=== PATIENT | male | born 1965 | race Caucasian/White ===

== ENCOUNTER 2022-01-31 06:36 | Inpatient (IN) | payer BC ==
[2022-01-31 08:05] LABS: Absolute Lymphocytes (CBC) 0.8 K/uL (0.7-4.9); Lymphocytes % 12.3 % (15.3-44.8); MPV 8.4 fL (7.6-11.3); RBC Red Blood Cell Count 7.21 M/uL (4.33-5.43)
[2022-01-31 08:12] LABS: Protime INR 1.37
[2022-01-31 08:21] LABS: Albumin 2.6 g/dL (3.4-5.0); Bilirubin Total 1.3 mg/dL (0.2-1.0); Protein, Total 6.8 g/dL (6.4-8.2)
--- NOTE | 2022-01-31 08:51 | RAD REPORT ---
EXAM DESCRIPTION: US - Scrotum Testicles - 01/31/2022 7:38 am CLINICAL HISTORY: scrotal pain, swelling COMPARISON: No comparisons FINDINGS: Significant edema is seen involving the scrotal wall. The right testicle 3.7 x 2.5 x 2.6 cm. No intratesticular masses or evidence of testicular torsion. The left testicle 4.1 x 3.0 x 2.6 cm. No intratesticular masses or evidence of testicular torsion. Both epididymides are normal in size and appearance. Mild fluid is seen in both scrotal sacs. IMPRESSION: Significant edema/ swelling of the scrotal wall. No testicular torsion or worrisome testicular masses.
--- NOTE | 2022-01-31 08:52 | RAD REPORT ---
EXAM DESCRIPTION: RAD - Chest Single View - 01/31/2022 8:15 am CLINICAL HISTORY: DYSPNEA Chest pain. COMPARISON: No comparisons FINDINGS: Portable technique limits examination quality. Mild to moderate pulmonary edema is noted. Moderate right pleural effusion. The heart is significantl y moderately enlarged. No displaced fractures. IMPRESSION: Moderate CHF with right pleural effusion.
[2022-01-31] MEDS ORDERED: FUROSEMIDE 100 MG/10 ML VIAL IV ONE (09:01)
--- NOTE | 2022-01-31 09:11 | ER ---
Nurse's Notes [facility] Name: Edilberto Lagos Age: 56 yrs Sex: Male : 1965 Arrival Date: 01/31/2022 Time: 06:41 Bed 18 Private MD: Diagnosis: Dyspnea, unspecified;Anasarca;Unspecified combined systolic (congestive) and diastolic (congestive) heart failure;Pleural effusion, not elsewhere classified Presentation: 01/31 06:41 Chief complaint: EMS states: they were toned out for report of pt with scrotal pain and bb edema since last night after moving things around in his apartment. Coronavirus screen: At this time, the client does not indicate any symptoms associated with coronavirus-19. Ebola Screen: No symptoms or risks identified at this time. Initial Sepsis Screen: Does the patient meet any 2 criteria? No. Patient's initial sepsis screen is negative. Does the patient have a suspected source of infection? No. Patient's initial sepsis screen is negative. Risk Assessment: Do you want to hurt yourself or someone else? Patient reports no desire to harm self or others. Onset of symptoms was January 30, 2022. 06:41 Method Of Arrival: EMS: [facility] bb 06:41 Acuity: MARIUM 3 bb Historical: - Allergies: 06:43 No Known Allergies; bb - Home Meds: 06:43 None [Active]; bb - PMHx: 06:43 unknown; bb - PSHx: 06:43 back surgery; bb - Immunization history:: Pfizer x 3. - Social history:: Smoking status: Patient reports the use of cigarette tobacco products. - Family history:: not pertinent. - Hospitalizations: : No recent hospitalization is reported. Screenin:55 Abuse screen: Denies threats or abuse. Nutritional screening: No deficits noted. jh6 Tuberculosis screening: No symptoms or risk factors identified. Fall Risk IV access (20 points). Gait- Impaired (20 pts.). Assessment: 07:45 General: Appears uncomfortable, obese, Behavior is calm, cooperative. 6 07:45 Pain: Complains of pain in lumbar area, left low back and right low back Pain radiates jh6 to groin Pain currently is 7 out of 10 on a pain scale. Quality of pain is described as shooting, throbbing, Pain began 2-3 days ago. Is continuous, Aggravated by increased activity, weight bearing, Also complains of. Neuro: No deficits noted. Cardiovascular: No deficits noted. Respiratory: Reports shortness of breath at rest and unable to lay flat Airway is patent Trachea midline Respiratory effort is even, labored, Respiratory pattern is regular, symmetrical, Breath sounds are clear bilaterally. in left posterior upper lobe and right posterior upper lobe Breath sounds with crackles Breath sounds are diminished bilaterally. in left lower lobe, right lower lobe, left posterior lower lobe and right posterior lower lobe Onset: The symptoms/episode began/occurred gradually, the patient has mild shortness of breath. Derm: +4 edema to bilateral lower extremities with major swelling to testicles. swelling extending to lower abd. 09:00 Reassessment: Patient and/or family updated on plan of care and expected duration. Pain jh6 level reassessed. Patient is alert, oriented x 3, equal unlabored respirations, skin warm/dry/pink. able to speak in complete sentences but not without sob. pt on o2 and monitor. 10:00 Reassessment: No changes from previously documented assessment. Patient and/or family jh6 updated on plan of care and expected duration. Pain level reassessed. 11:00 Reassessment: Patient and/or family updated on plan of care and expected duration. Pain jh6 level reassessed. Patient is alert, oriented x 3, equal unlabored respirations, skin warm/dry/pink. pt has put out almost 3 liters and states other than butt pain, is starting to feel better. Patient states feeling better. 12:10 Reassessment: No changes from previously documented assessment. Patient and/or family jh6 updated on plan of care and expected duration. Pain level reassessed. Patient is alert, oriented x 3, equal unlabored respirations, skin warm/dry/pink. call light in reach. 13:30 Reassessment: Patient and/or family updated on plan of care and expected duration. Pain jh6 level reassessed. Patient is alert, oriented x 3, equal unlabored respirations, skin warm/dry/pink. Patient denies pain at this time. Patient states feeling better. 15:37 Reassessment: Patient and/or family updated on plan of care and expected duration. Pain jh6 level reassessed. Patient is alert, oriented x 3, equal unlabored respirations, skin warm/dry/pink. attempted to call report at this time Patient states feeling better. Patient states symptoms have improved. Vital Signs: 06:41 Resp 18 S; Temp 97.6(O); Weight 136.08 kg (R); Height 6 ft. 2 in. (187.96 cm) (R); Pain bb 5; 09:00 BP 150 / 94; Pulse 82; Resp 22; Pulse Ox 95% on 3 lpm NC; Pain 5/10; jh6 10:09 BP 167 / 95; Pulse 85; Resp 22; Pulse Ox 92% on 4 lpm NC; Pain 5/10; jh6 12:15 BP 134 / 70; Pulse 81; Resp 26; Pulse Ox 95% on 3 lpm NC; Pain 4/10; jh6 13:30 BP 138 / 86; Pulse 75; Resp 22; Pulse Ox 94% on 3 lpm NC; Pain 2/10; jh6 14:30 BP 125 / 79; Pulse 70; Resp 24; Pulse Ox 95% on 3 lpm NC; Pain 0/10; jh6 06:41 Body Mass Index 38.52 (136.08 kg, 187.96 cm) bb ED Course: 06:41 Patient arrived in ED. bb 06:43 Triage completed. bb 06:43 Arm band placed on pt awaiting on EMS stretcher for next available room. bb 07:03 Lexa Flores MD is Attending Physician. rn 07:30 Jennifer Nathan RN is Primary Nurse. jh6 07:40 Scrotum Testicles In Process Unspecified. EDMS 07:45 Bed in low position. Call light in reach. Side rails up X2. jh6 07:54 Inserted saline lock: 22 gauge in right antecubital area, using aseptic technique. jh6 Blood collected. 07:54 Initial lab(s) drawn, by me, sent to lab. COVID swab sent to lab. X-ray(s) taken. jh6 08:16 XRAY Chest (1 view) In Process Unspecified. EDMS 09:00 Garcia cath inserted, using sterile technique, 16 Fr., by me, balloon inflated, to jh6 gravity drainage. 09:10 Zaheer Cavazos MD is Hospitalizing Provider. rn Administered Medications: 09:04 Drug: Lasix (furosemide) 60 mg Route: IVP; Site: right antecubital; jh6 10:18 Follow up: Response: No adverse reaction jh6 11:38 Follow up: Response: No adverse reaction 6 09:15 Drug: Xopenex (levalbuterol) 1.25 mg Route: Inhalation; 6 10:18 Follow up: Response: No adverse reaction 6 11:54 Drug: Demerol (meperidine) 12.5 mg Route: IVP; Site: right antecubital; 6 12:27 Follow up: Response: Pain is decreased 6 Output: 09:45 Urine: 800ml (Garcia); Total: 800ml. jh6 11:30 Urine: 1600ml (Garcia); Total: 2400ml. 6 Outcome: 09:11 Decision to Hospitalize by Provider. rn 16:39 [address] [facility] [address] [facility] Signatures: Dispatcher [employer] Lis Whitfield RN RN bb Nieto, Roman, MD MD rn Hastedt, Jennifer, RN RN jh6
[2022-01-31 09:12] LABS: White Blood Cell Scan OK (OK)
--- NOTE | 2022-01-31 09:12 | EDPHYS ---
Physician Documentation [facility] Name: Edilberto Lagos Age: 56 yrs Sex: Male : 1965 Arrival Date: 01/31/2022 Time: 06:41 Bed 18 Private MD: ED Physician Lexa Floers HPI: 01/31 08:13 This 56 yrs old Male presents to ER via EMS with complaints of Swelling, scrotal pain. rn 08:14 Pt reports swelling all over, for months, worse over last week with increase in rn swelling of scrotum and sob. No fever. No cough. No known medical problems. Not a drinker. + smoker. . Onset: The symptoms/episode began/occurred 1 month(s) ago. Severity of symptoms: At their worst the symptoms were moderate in the emergency department the symptoms are unchanged. The patient has experienced similar episodes in the past. The patient has not recently seen a physician. Historical: - Allergies: 06:43 No Known Allergies; bb - Home Meds: 06:43 None [Active]; bb - PMHx: 06:43 unknown; bb - PSHx: 06:43 back surgery; bb - Immunization history:: Pfizer x 3. - Social history:: Smoking status: Patient reports the use of cigarette tobacco products. - Family history:: not pertinent. - Hospitalizations: : No recent hospitalization is reported. ROS: 08:14 Constitutional: Negative for fever, chills, and weight loss, Eyes: Negative for injury, rn pain, redness, and discharge, Neck: Negative for injury, pain, and swelling, Cardiovascular: Negative for chest pain, palpitations Respiratory: + sob Abdomen/GI: Negative for abdominal pain, nausea, vomiting, diarrhea, and constipation, : + scrotal swelling MS/Extremity: + swelling both legs Skin: Negative for injury Neuro: Negative for headache, weakness, numbness, tingling, and seizure. Exam: 08:14 Constitutional: This is a well developed, well nourished patient who is awake, alert, rn overweight male with diffuse edema and tachypnea Head/Face: Normocephalic, atraumatic. Eyes: Periorbital areas with no swelling, redness, or edema. Cardiovascular: Regular rate and rhythm. No pulse deficits. Respiratory: No increased work of breathing, no retractions or nasal flaring. Abdomen/GI: soft, + abd wall edema, non-tender Male : + diffuse scrotal swelling and edema, no focal tenderness Skin: + brawny edema bilateral lower ext, no open wounds or weeping MS/ Extremity: Pulses equal, no cyanosis. 3+ pitting edema bilateral lower ext Neuro: Awake and alert, GCS 15 Vital Signs: 06:41 Resp 18 S; Temp 97.6(O); Weight 136.08 kg (R); Height 6 ft. 2 in. (187.96 cm) (R); Pain bb 5/10; 09:00 BP 150 / 94; Pulse 82; Resp 22; Pulse Ox 95% on 3 lpm NC; Pain 5/10; jh6 10:09 BP 167 / 95; Pulse 85; Resp 22; Pulse Ox 92% on 4 lpm NC; Pain 5/10; jh6 12:15 BP 134 / 70; Pulse 81; Resp 26; Pulse Ox 95% on 3 lpm NC; Pain 4/10; jh6 13:30 BP 138 / 86; Pulse 75; Resp 22; Pulse Ox 94% on 3 lpm NC; Pain 2/10; jh6 14:30 BP 125 / 79; Pulse 70; Resp 24; Pulse Ox 95% on 3 lpm NC; Pain 0/10; jh6 06:41 Body Mass Index 38.52 (136.08 kg, 187.96 cm) bb MDM: 07:03 Patient medically screened. rn 09:10 Differential Diagnosis anasarca ,CHF. Data reviewed: vital signs, nurses notes, seed analysis laboratory assistant test result(s), EKG, radiologic studies, plain films, and as a result, I will admit patient. Counseling: I had a detailed discussion with the patient and/or guardian regarding: the historical points, exam findings, and any diagnostic results supporting the discharge/admit diagnosis, lab results, radiology results, the need for further work-up and treatment in the hospital. Response to treatment: the patient's symptoms have mildly improved after treatment, and as a result, I will admit patient. Admission orders: after a detailed discussion of the patient's condition and case, the admit orders are written by me. 01/31 07:23 Order name: CBC with Diff rn 01/31 07:23 Order name: Protime (+inr); Complete Time: 09:03 rn 01/31 07:23 Order name: Ptt, Activated; Complete Time: 09:03 rn 01/31 07:23 Order name: CMP; Complete Time: 09:03 rn 01/31 07:23 Order name: BNP; Complete Time: 09:03 rn 01/31 07:30 Order name: SARS-COV-2 RT PCR (Document "Date of Onset" if Symptomatic) rn 01/31 08:08 Order name: CBC Smear Scan EDMS 01/31 13:25 Order name: CBC with Automated Diff EDMS 01/31 13:25 Order name: CBC with Automated Diff EDMS 01/31 13:25 Order name: Comprehensive Metabolic Panel EDMS 01/31 13:25 Order name: Comprehensive Metabolic Panel EDMS 01/31 13:25 Order name: Magnesium EDMS 01/31 13:25 Order name: Magnesium EDMS 01/31 13:25 Order name: NT PRO-BNP EDMS 01/31 07:23 Order name: US Scrotum Testicles; Complete Time: 09:03 rn 01/31 07:23 Order name: IV Start; Complete Time: 09:05 rn 01/31 07:23 Order name: XRAY Chest (1 view); Complete Time: 09:03 rn 01/31 07:23 Order name: EKG; Complete Time: 07:24 rn 01/31 07:23 Order name: EKG - Nurse/Tech; Complete Time: 09:03 rn 01/31 07:23 Order name: Cardiac monitoring; Complete Time: 07:30 rn 01/31 13:25 Order name: CONS Physician Consult EDTX 01/31 13:25 Order name: Heart Healthy EDMS 01/31 13:25 Order name: Echo with Doppler EDMS 01/31 13:25 Order name: Echo with Doppler EDMS 01/31 13:25 Order name: NT PRO-BNP EDMS 01/31 13:25 Order name: Phosphorus EDMS 01/31 13:25 Order name: Phosphorus EDMS 01/31 07:23 Order name: O2 Sat Monitoring; Complete Time: 07:30 rn 01/31 08:04 Order name: Garcia; Complete Time: 09:03 rn Administered Medications: 09:04 Drug: Lasix (furosemide) 60 mg Route: IVP; Site: right antecubital; [facility] 10:18 Follow up: Response: No adverse reaction jh6 11:38 Follow up: Response: No adverse reaction 6 09:15 Drug: Xopenex (levalbuterol) 1.25 mg Route: Inhalation; 6 10:18 Follow up: Response: No adverse reaction 6 11:54 Drug: Demerol (meperidine) 12.5 mg Route: IVP; Site: right antecubital; 6 12:27 Follow up: Response: Pain is decreased 6 Disposition Summary: 01/31/22 09:11 Hospitalization Ordered Hospitalization Status: Inpatient Admission rn Provider: Zaheer Cavazos rn Condition: Stable rn Problem: an ongoing problem rn Symptoms: have improved rn Bed/Room Type: Standard rn Location: Telemetry/MedSurg (Inpatient)(01/31/22 10:41) ss Room Assignment: [facility](01/31/22 15:15) bd Diagnosis - Dyspnea, unspecified rn - Anasarca rn - Unspecified combined systolic (congestive) and diastolic (congestive) heart failure rn - Pleural effusion, not elsewhere classified rn Forms: - Medication Reconciliation Form rn - SBAR form rn Signatures: Dispatcher [employer] EDLila Marquez Brenda, RN RN bb Lexa Flores MD MD rn Smirch, Shelby, RN RN ss Jennifer Nathan RN RN [facility] Corrections: (The following items were deleted from the chart) 10:39 09:11 Telemetry/MedSurg (Inpatient) rn ss 10:39 09:11 rn ss 10:41 10:39 [facility] ER HOLD ss ss 10:41 10:39 ERHOLD- ss ss 15:15 10:41 ss bd
[2022-01-31 09:13] LABS: Blood Morphology Comment NOT SEEN (NOT SEEN); Platelet Estimate ADEQ; Platelets, Giant 1+
[2022-01-31] MEDS ORDERED: LEVALBUTEROL 1.25 MG/3 ML NEB ONE (09:17)
[2022-01-31] MEDS ORDERED: MEPERIDINE HCL 25 MG/ML SYR ONE (11:46)
[2022-01-31] MEDS ORDERED: ONDANSETRON 4 MG/2 ML VIAL IV PRN (13:21)
[2022-01-31] MEDS ORDERED: ACETAMINOPHEN 500 MG TAB PO PRN (13:21)
[2022-01-31] MEDS: FUROSEMIDE 20 MG TABLET PO SCH ×2 (15:00→20:57)
[2022-01-31] MEDS ORDERED: FUROSEMIDE 20 MG/ 2ML VIAL ONE (15:36)
[2022-01-31] MEDS: POTASSIUM 25 MEQ EFFERV TAB PO SCH (20:58)
[2022-02-01 04:09] LABS: Absolute Lymphocytes (CBC) 0.8 K/uL (0.7-4.9); Hematocrit 54.1 % (39.6-49.0); Lymphocytes % 8.9 % (15.3-44.8); MPV 8.4 fL (7.6-11.3); RBC Red Blood Cell Count 6.75 M/uL (4.33-5.43)
[2022-02-01 04:24] LABS: Albumin 2.4 g/dL (3.4-5.0); Bilirubin Total 1.1 mg/dL (0.2-1.0); Magnesium 1.6 mg/dL (1.8-2.4); Phosphorus 4.5 mg/dL (2.5-4.9); Potassium 4.1 mmol/L (3.5-5.1); Protein, Total 6.6 g/dL (6.4-8.2)
[2022-02-01] MEDS ORDERED: MAGNESIUM SULFATE 1 gm IVPB 1 GM/100 ML BAG IV ONE (07:00)
[2022-02-01] MEDS: ENOXAPARIN 40 MG/0.4 ML SQ SCH (08:08)
[2022-02-01] MEDS: POTASSIUM 25 MEQ EFFERV TAB PO SCH ×2 (08:09→20:59)
[2022-02-01] MEDS: FUROSEMIDE 20 MG TABLET PO SCH (08:10)
[2022-02-01] MEDS: lisinopriL 10 MG TAB PO SCH (08:11)
--- NOTE | 2022-02-01 10:42 | P.HP ---
Certification for Inpatient Patient admitted to: Inpatient With expected LOS: >2 Midnights Patient will require the following post-hospital care: None Practitioner: I am a practitioner with admitting privileges, knowledge of patient current condition, hospital course, and medical plan of care. Services: Services provided to patient in accordance with Admission requirements found in Title 42 Section 412.3 of the Code of Federal Regulations Patient History Date of Service: 01/31/22 Reason for admission: Anasarca History of Present Illness: Patient is a 56-year-old gentleman who came to the hospital with anasarca. Patient had bilateral lower extremity edema. Patient also with fluid in the abdomen. Patient has scrotal edema which was the main reason he came into the hospital. However he had significant edema in the lower extremities. It appears he has developed some lymphedema. 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 Over the last few months since has been sitting at a desk he has noticed that the swelling is not improving. He decided to come to the hospital because of the scrotal edema. He has not seen a doctor in many years. He will be admitted for aggressive diuresing. Patient has a least an extra 20 to 30 pounds in his lower extremities as well as additional extra weight in his abdomen. We will try to aggressively diurese him and he will need to have outpatient follow-up. Work-up for congestive heart failure as he has some pulmonary edema on his chest x-rays. Allergies No Known Allergies Allergy (Unverified 01/31/22 14:39) Home Medications: NK [No Home Meds] 01/31/22 - Past Medical/Surgical History Has patient received pneumonia vaccine in the past: No Diabetic: No Past Medical History: Patient denies medical history Past Surgical History: Patient denies surgical history - Family History Father Family History: Reviewed- Non-Contributory - Social History Smoking Status: Heavy Tobacco smoker (>10 cigarettes/day) Alcohol use: No CD- Drugs: No Caffeine use: No Place of Residence: Home Review of Systems 10-point ROS is otherwise unremarkable Physical Examination - Vital Signs Temperature: 97.1 F Blood Pressure: 154/91 Pulse: 89 Respirations: 16 Pulse Ox (%): 93 - Physical Exam General: Alert, In no apparent distress, Oriented x3 HEENT: Atraumatic, PERRLA, Mucous membr. moist/pink, EOMI, Sclerae nonicteric Neck: Supple, 2+ carotid pulse no bruit, No LAD, Without JVD or thyroid abnormality Respiratory: Diminished, Crackles/rales Cardiovascular: Regular rate/rhythm, Normal S1 S2, Systolic murmur Gastrointestinal: Normal bowel sounds, Soft and benign, No tenderness, Distended, Ascites Musculoskeletal: No tenderness, Swelling Integumentary: No rashes, Tenderness/swelling, Erythema, Warmth Neurological: Normal gait, Normal speech, Normal strength at 5/5 x4 extr, Normal tone, Sensation intact, Cranial nerves 3-12 intact, Normal affect Lymphatics: No axilla or inguinal lymphadenopathy Assessment & Plan - Problems (Diagnosis) (1) Anasarca Current Visit: Yes Status: Acute (2) CHF (congestive heart failure), NYHA class II Current Visit: Yes Status: Acute (3) Lymphedema Current Visit: Yes Status: Acute (4) Scrotal edema Current Visit: Yes Status: Acute - Plan PLAN: 1. Echocardiogram 2. We will start patient on an JEANNIE inhibitor or an ARB 3. We will start patient on a Beta carla 4. Cardiology consultation pending 5. Aggressive diuresis 6. Strict I's and O's 7. Repeat CXR 8. Daily weights 9. Education regarding diet and treatment of congestive heart failure Discharge Plan: Home Plan to discharge in: Greater than 2 days - Advance Directives Does patient have a Living Will: No Does patient have a Durable POA for Healthcare: No - Code Status/Comfort Care Code Status Assessed: Yes Code Status: Full Code Critical Care: No Time Spent Managing PTS Care (In Minutes): 45
--- NOTE | 2022-02-01 10:44 | P.PN ---
Date of Service: 02/01/22 Subjective Patient is still a little tachypneic. Still with significant lower extremity edema. Continue with Garcia catheter for 48 more hours for strict I's and O measurements. Review of Systems 10-point ROS is otherwise unremarkable Physical Examination - Vital Signs reviewed - Physical Exam General: Alert, In no apparent distress, Oriented x3 Respiratory: Diminished, Crackles/rales Cardiovascular: Regular rate/rhythm, Normal S1 S2, Systolic murmur Gastrointestinal: Normal bowel sounds, Soft and benign, No tenderness, Distended, Ascites Musculoskeletal: No tenderness, Swelling Integumentary: No rashes, Tenderness/swelling, Erythema, Warmth Neurological: Normal gait, Normal speech, Normal strength at 5/5 x4 extr, Normal tone, Sensation intact, Cranial nerves 3-12 intact, Normal affect Assessment & Plan - Problems (Diagnosis) (1) Anasarca Current Visit: Yes Status: Acute (2) CHF (congestive heart failure), NYHA class II Current Visit: Yes Status: Acute (3) Lymphedema Current Visit: Yes Status: Acute (4) Scrotal edema Current Visit: Yes Status: Acute - Plan PLAN: 1. Echocardiogram pending 2. We will start patient on an JEANNIE inhibitor or an ARB 3. We will start patient on a Beta carla 4. Cardiology consultation pending 5. Aggressive diuresis with albumin and Lasix drip 6. Strict I's and O's 7. Repeat CXR 8. Daily weights 9. Education regarding diet and treatment of congestive heart failure Discharge Plan: Home Plan to discharge in: Greater than 2 days - Advance Directives Does patient have a Living Will: No Does patient have a Durable POA for Healthcare: No - Code Status/Comfort Care Code Status Assessed: Yes Code Status: Full Code Critical Care: No Time Spent Managing PTS Care (In Minutes): 45
[2022-02-01] MEDS: ALBUMIN HUMAN 25% 12.5 GM, FUROSEMIDE 100 MG in NA CHLORIDE 0.9% 40 ML IV SCH ×3 (11:34→20:58)
--- NOTE | 2022-02-01 12:57 | EKG ---
Test Date: 2022-01-31 Test Time: 07:55:34 Inside Finisher: DAVID MEASUREMENT RESULTS: Intervals: Rate: 91 CA: 158 QRSD: 142 QT: 420 QTc: 516 [place]: P: 67 CA: 158 QRS: 102 T: 55 INTERPRETIVE STATEMENTS: Normal sinus rhythm Possible Left atrial enlargement Right bundle branch block Anteroseptal infarct, age undetermined Abnormal ECG No previous ECG available for comparison Electronically Signed On 02-01-22 12:52:24 CDT by Sung Campa
--- NOTE | 2022-02-01 13:56 | ECHO ---
HEIGHT: 6 ft 2 in WEIGHT: 301 lb 0 oz DATE OF STUDY: 02/01/[address]: Zaheer Cavazos MD 2-DIMENSIONAL: YES M.MODE: YES DOPPLER: YES COLOR FLOW: YES TDS: NO PORTABLE: YES DEFINITY: NO BUBBLE STUDY: NO DIAGNOSIS: CONGESTIVE HEART FAILURE CARDIAC HISTORY: CATHERIZATION: SURGERY: PROSTHETIC VALVE: PACEMAKER: MEASUREMENTS (cm) DIASTOLIC (NORMALS) SYSTOLIC (NORMALS) IVSd 1.4 (0.6-1.2) LA Diam 3.7 (1.9-4.0) LVEF 36% LVIDd 4.8 (3.5-5.7) LVIDs 4.0 (2.0-3.5) %FS 17% LVPWd 1.4 (0.6-1.2) Ao Diam 3.0 (2.0-3.7) 2 DIMENSIONAL ASSESSMENT: RIGHT ATRIUM: NORMAL LEFT ATRIUM: NORMAL RIGHT VENTRICLE: NORMAL LEFT VENTRICLE: LEFT VENTRICULAR HYPERTROPHY TRICUSPID VALVE: NORMAL MITRAL VALVE: NORMAL PULMONIC VALVE: NORMAL AORTIC VALVE: SCLEROSIS PERICARDIAL EFFUSION: NONE AORTIC ROOT: NORMAL LEFT VENTRICULAR WALL MOTION: MODERATE GLOBAL HYPOKINESIS. DOPPLER/COLOR FLOW: MILD TRICUSPID AND MITRAL REGURGITATION. COMMENTS: LEFT VENTRICULAR HYPERTROPHY. MODERATE GLOBAL HYPOKINESIS. LEFT VENTRICULAR EJECTION FRACTION 36%. MILD TRICUSPID AND MITRAL REGURGITATION. TECHNOLOGIST: Jack SETH
[2022-02-01] MEDS: SPIRONOLACTONE 25 MG TABLET PO SCH (20:58)
[2022-02-01] MEDS ORDERED: POTASSIUM 25 MEQ EFFERV TAB PO SCH (21:00)
[2022-02-02] MEDS: ALBUMIN HUMAN 25% 12.5 GM, FUROSEMIDE 100 MG in NA CHLORIDE 0.9% 40 ML IV SCH ×2 (03:11→07:59)
[2022-02-02 06:22] LABS: Absolute Lymphocytes (CBC) 0.7 K/uL (0.7-4.9); Hematocrit 55.4 % (39.6-49.0); Lymphocytes % 10.1 % (15.3-44.8); MPV 7.5 fL (7.6-11.3); RBC Red Blood Cell Count 6.86 M/uL (4.33-5.43)
[2022-02-02 06:56] LABS: BUN Blood Urea Nitrogen 10 mg/dL (7-18); Glomerular Filtration Rate > 90 mL/min (=/>90); Glucose Level 107 mg/dL (74-106); Magnesium 1.7 mg/dL (1.8-2.4); Sodium Level 135 mmol/L (136-145)
[2022-02-02 07:00] LABS: Bicarbonate 43 mmol/L (21-32)
[2022-02-02] MEDS ORDERED: MAGNESIUM SULFATE 1 gm IVPB 1 GM/100 ML BAG IV ONE (07:15)
[2022-02-02 07:28] LABS: Anisocytosis 1+; Blood Morphology Comment NOTED (NOT SEEN); Platelet Estimate ADEQ; White Blood Cell Scan OK (OK)
[2022-02-02 07:29] LABS: Ovalocytes 1+; Platelets, Giant SLIGHT; Poikilocytosis 1+; Stomatocytes 1+
--- NOTE | 2022-02-02 07:38 | RAD REPORT ---
EXAM DESCRIPTION: US - Abdomen Exam Complete - 02/02/2022 5:45 am CLINICAL HISTORY: Abdominal pain COMPARISON: none FINDINGS: The liver has a coarsened echotexture. Cirrhotic liver noted. A gallstone is not seen. The gallbladder wall is mildly thickened perhaps related to hypoalbuminemia. The biliary tree is normal caliber. The pancreas is normal in size and echotexture The right kidney measures 11 centimeters with a normal echotexture. Portions of the left kidney were not well visualized. No gross abnormality is seen Spleen measures 12.5 centimeters with a normal echotexture. Limited evaluation of portions of the pancreas without visualization of a gross abnormality The abdominal aorta and inferior vena cava appear unremarkable IMPRESSION: Cirrhotic liver. Borderline splenomegaly
[2022-02-02] MEDS: ENOXAPARIN 40 MG/0.4 ML SQ SCH (07:59)
[2022-02-02] MEDS: POTASSIUM 25 MEQ EFFERV TAB PO SCH ×2 (07:59→21:06)
[2022-02-02] MEDS: SPIRONOLACTONE 25 MG TABLET PO SCH ×2 (08:00→21:05)
[2022-02-02] MEDS: lisinopriL 10 MG TAB PO SCH (08:00)
--- NOTE | 2022-02-02 09:11 | CON ---
Date of Consultation: 02/01/2022 Admitted with congestive heart failure by Dr. Cavazos on 01/31/2022. I saw the patient on 02/01/2022. Reason For Consultation: Congestive heart failure. History Of Present Illness: Mr. Lagos is a 56-year-old white male without any previous cardiac hist ory, who came into the emergency room with scrotal pain and swelling, pedal edema, PND, orthopnea. D enied any palpitation or syncope. Denied any chest pain. Denied any unexplained nausea, vomiting, o r diaphoresis. Definitely found to be in congestive heart failure by clinical examination. He does not take any medicine. He does not have any allergy. Has not really seen physician for quite someti mes. Past Medical History: History of back surgery. Review of Systems: Negative. Social History: Negative. Family History: Noncontributory. Medications: At home are none. Physical Examination: Vital Signs: His blood pressure was 144/83. He was in sinus rhythm. He was afebrile. O2 saturatio n was 95% on nasal cannula. HEENT: Negative. Neck: Supple with no bruit. Chest: Revealed some rales both bases. Cardiac: Revealed a regular rhythm and rate with S3 gallops. No murmurs or rubs. Abdomen: Obese with ascites. He had anasarca and scrotal swelling. Extremities: Pedal edema 3+ with chronic venous changes. Diagnostic Data: His hemoglobin was 18. His creatinine was 0.97. His white count was normal. Kidn ey function was normal. His BNP was 3537. He was COVID negative. Chest x-ray showed pleural effusi on on the right with congestive heart failure. EKG showed bilateral atrial enlargement, right bundle -branch block, and normal sinus rhythm. Impression And Plan: New onset acute systolic congestive heart failure with anasarca, ascites, pedal edema. The patient needs to have an echocardiogram as well as possible needs to be on IV Lasix for diuresis, Lovenox, probably JEANNIE inhibitors as well as Aldactone and we should really consider low-dos e carvedilol. We will see what the echocardiogram shows before making further decisions. KT/CHIQUITA Voice ID: [id number] Report ID: [id number]
[2022-02-02] MEDS: carvediloL 6.25 MG TAB PO SCH ×2 (09:55→21:06)
--- NOTE | 2022-02-02 13:40 | PN ---
Date of Progress Note: 02/02/2022 Mr. Lagos came in with a new-onset congestive heart failure. Echocardiogram which was done yesterda y showed an ejection fraction of 36% with [id number] global hypokinesis, some aortic sclerosi s, no effusion. The patient has a normal kidney function. Initial chest x-ray showed congestive hea rt failure. Abdominal ultrasound shows cirrhosis of the liver. The patient needs to be on Lasix, AC E inhibitor, Aldactone, carvedilol. We should eventually have him do an outpatient MPI or Lexiscan d epending on his physical abilities. I will discuss the case further with Dr. Cavazos. KT/CHIQUITA Voice ID: [id number] Report ID: [id number]
[2022-02-03 06:06] LABS: BUN Blood Urea Nitrogen 14 mg/dL (7-18); Glomerular Filtration Rate > 90 mL/min (=/>90); Glucose Level 101 mg/dL (74-106); Phosphorus 3.4 mg/dL (2.5-4.9); Sodium Level 134 mmol/L (136-145)
[2022-02-03 06:07] LABS: Bicarbonate 42 mmol/L (21-32); Magnesium 1.8 mg/dL (1.8-2.4); Potassium 4.5 mmol/L (3.5-5.1)
[2022-02-03] MEDS ORDERED: MAGNESIUM SULFATE 1 gm IVPB 1 GM/100 ML BAG IV ONE (08:00)
[2022-02-03] MEDS: carvediloL 6.25 MG TAB PO SCH ×2 (08:36→21:25)
[2022-02-03] MEDS: SPIRONOLACTONE 25 MG TABLET PO SCH ×2 (08:36→21:25)
[2022-02-03] MEDS: ENOXAPARIN 40 MG/0.4 ML SQ SCH (08:36)
[2022-02-03] MEDS: lisinopriL 10 MG TAB PO SCH (08:37)
[2022-02-03] MEDS: POTASSIUM 25 MEQ EFFERV TAB PO SCH ×2 (08:37→21:25)
--- NOTE | 2022-02-03 16:27 | PN ---
Date of Progress Note: 02/03/2022 Mr. Lagos had come in with new onset acute systolic congestive heart failure, ejection fraction of 3 6%. He has improved. I plan to have him do an outpatient Lexiscan and see me in the near future. Portia prieto is on appropriate lisinopril, Coreg, Aldactone, and Lasix. He can go home whenever it i s okay with admitting physician. I will discuss the case further with Dr. Cavazos. KT/CHIQUITA Voice ID: [id number] Report ID: [id number]
--- NOTE | 2022-02-03 19:00 | P.PN ---
Date of Service: 02/02/22 Subjective Patient improving. Significant amount of weight loss. Significant amount of fluid output. Continue with therapy. Continue with wound care. Family wanting [facility]ci facility placement Review of Systems 10-point ROS is otherwise unremarkable Physical Examination - Vital Signs reviewed - Physical Exam General: Alert, In no apparent distress, Oriented x3 Respiratory: Diminished, Crackles/rales Cardiovascular: Regular rate/rhythm, Normal S1 S2, Systolic murmur Gastrointestinal: Normal bowel sounds, Soft and benign, No tenderness, Distended, Ascites Musculoskeletal: No tenderness, Swelling Integumentary: No rashes, Tenderness/swelling, Erythema, Warmth Neurological: Normal gait, Normal speech, Normal strength at 5/5 x4 extr, Normal tone, Sensation intact, Cranial nerves 3-12 intact, Normal affect Assessment & Plan - Problems (Diagnosis) (1) Anasarca Current Visit: Yes Status: Acute (2) CHF (congestive heart failure), NYHA class II Current Visit: Yes Status: Acute (3) Lymphedema Current Visit: Yes Status: Acute (4) Scrotal edema Current Visit: Yes Status: Acute - Plan Continue with plan of care as mentioned below: 1. Echocardiogram with an ejection fraction of 36%; abdominal ultrasound with cirrhosis 2. Continue with cardiac meds 3. Continue with Lasix and Aldactone 4. Appreciate cardiology consultation 5. Check ammonia level and coag profile 6. Strict I's and O's 7. Hepatitis profile 8. Continue with daily weights 9. Transfer to rehab Discharge Plan: Home Plan to discharge in: Greater than 2 days - Advance Directives Does patient have a Living Will: No Does patient have a Durable POA for Healthcare: No - Code Status/Comfort Care Code Status Assessed: Yes Code Status: Full Code Critical Care: No Time Spent Managing PTS Care (In Minutes): 45
--- NOTE | 2022-02-03 19:02 | P.PN ---
Date of Service: 02/03/22 Subjective Patient continues to improve. Family decided on custodial facility placement. Continue working with therapy and wound care Review of Systems 10-point ROS is otherwise unremarkable Physical Examination - Vital Signs reviewed - Physical Exam General: Alert, In no apparent distress, Oriented x3 Respiratory: Diminished, Crackles/rales Cardiovascular: Regular rate/rhythm, Normal S1 S2, Systolic murmur Gastrointestinal: Normal bowel sounds, Soft and benign, No tenderness, Distended, Ascites Musculoskeletal: No tenderness, Swelling Integumentary: No rashes, Tenderness/swelling, Erythema, Warmth; lower extremity thickening Neurological: No focal deficits Assessment & Plan - Problems (Diagnosis) (1) Anasarca Current Visit: Yes Status: Acute (2) CHF (congestive heart failure), NYHA class II Current Visit: Yes Status: Acute (3) Lymphedema Current Visit: Yes Status: Acute (4) Scrotal edema Current Visit: Yes Status: Acute (5) Cirrhosis Current Visit: Yes Status: Acute - Plan Continue with plan of care as mentioned below: 1. Echocardiogram with an ejection fraction of 36%; abdominal ultrasound with cirrhosis 2. Continue with cardiac meds 3. Continue with Lasix and Aldactone 4. Appreciate cardiology consultation 5. Check ammonia level and coag profile 6. Strict I's and O's 7. Hepatitis profile pending 8. Continue with daily weights 9. Transfer to rehab Discharge Plan: Home Plan to discharge in: Greater than 2 days - Advance Directives Does patient have a Living Will: No Does patient have a Durable POA for Healthcare: No - Code Status/Comfort Care Code Status Assessed: Yes Code Status: Full Code Critical Care: No Time Spent Managing PTS Care (In Minutes): 45
[2022-02-04 06:08] LABS: Absolute Lymphocytes (CBC) 0.7 K/uL (0.7-4.9); Lymphocytes % 13.1 % (15.3-44.8); MPV 7.9 fL (7.6-11.3); RBC Red Blood Cell Count 6.64 M/uL (4.33-5.43)
[2022-02-04 06:17] LABS: Protime INR 1.22
[2022-02-04 06:39] LABS: ALT/SGPT 17 U/L (12-78); AST/SGOT 21 U/L (15-37); Albumin 2.7 g/dL (3.4-5.0); Alkaline Phosphatase 105 U/L (45-117); BUN Blood Urea Nitrogen 16 mg/dL (7-18); Bicarbonate 40 mmol/L (21-32); Bilirubin Total 1.3 mg/dL (0.2-1.0); Folic Acid, (Folate) 6.3 ng/mL (3.1-17.5); Glomerular Filtration Rate > 90 mL/min (=/>90); Glucose Level 109 mg/dL (74-106); Magnesium 1.9 mg/dL (1.8-2.4); NT PRO-BNP 1585 pg/mL (<125); Potassium 4.3 mmol/L (3.5-5.1); Protein, Total 6.8 g/dL (6.4-8.2); Sodium Level 132 mmol/L (136-145)
[2022-02-04] MEDS: SPIRONOLACTONE 25 MG TABLET PO SCH ×2 (08:58→20:05)
[2022-02-04] MEDS: POTASSIUM 25 MEQ EFFERV TAB PO SCH ×2 (08:58→20:06)
[2022-02-04] MEDS: ENOXAPARIN 40 MG/0.4 ML SQ SCH (08:58)
[2022-02-04] MEDS: carvediloL 6.25 MG TAB PO SCH ×2 (08:59→20:06)
[2022-02-04] MEDS: lisinopriL 10 MG TAB PO SCH (09:00)
[2022-02-04] MEDS: KETOCONAZOLE CREAM 15 GM TUBE TOP SCH ×2 (09:00→20:07)
[2022-02-05] MEDS: POTASSIUM 25 MEQ EFFERV TAB PO SCH ×2 (08:40→21:19)
[2022-02-05] MEDS: ENOXAPARIN 40 MG/0.4 ML SQ SCH (08:40)
[2022-02-05] MEDS: SPIRONOLACTONE 25 MG TABLET PO SCH ×2 (08:40→21:19)
[2022-02-05] MEDS: lisinopriL 10 MG TAB PO SCH (08:41)
[2022-02-05] MEDS: carvediloL 6.25 MG TAB PO SCH ×2 (08:41→21:19)
[2022-02-05] MEDS: KETOCONAZOLE CREAM 15 GM TUBE TOP SCH ×2 (08:41→21:00)
[2022-02-05] MEDS: ALBUMIN HUMAN 25% 12.5 GM, FUROSEMIDE 100 MG in NA CHLORIDE 0.9% 40 ML IV SCH ×2 (15:48→21:18)
[2022-02-06] MEDS: ALBUMIN HUMAN 25% 12.5 GM, FUROSEMIDE 100 MG in NA CHLORIDE 0.9% 40 ML IV SCH (02:06)
--- NOTE | 2022-02-06 05:32 | P.PN ---
Date of Service: 02/04/22 Subjective Patient is doing well and awaiting placement Review of Systems 10-point ROS is otherwise unremarkable Physical Examination - Vital Signs reviewed - Physical Exam General: Alert, In no apparent distress, Oriented x3 Respiratory: Diminished, Crackles/rales Cardiovascular: Regular rate/rhythm, Normal S1 S2, Systolic murmur Gastrointestinal: Normal bowel sounds, Soft and benign, No tenderness, Distended, Ascites Musculoskeletal: No tenderness, Swelling : Scrotal edema Integumentary: No rashes, Tenderness/swelling, Erythema, Warmth; lower extremity thickening Neurological: No focal deficits Assessment & Plan - Problems (Diagnosis) (1) Anasarca Current Visit: Yes Status: Acute (2) CHF (congestive heart failure), NYHA class II Current Visit: Yes Status: Acute (3) Lymphedema Current Visit: Yes Status: Acute (4) Scrotal edema Current Visit: Yes Status: Acute (5) Cirrhosis Current Visit: Yes Status: Acute - Plan Continue with plan of care as mentioned below: 1. Echocardiogram with an ejection fraction of 36%; abdominal ultrasound with cirrhosis; continue with diuresing 2. Continue with cardiac meds 3. Continue with Lasix and Aldactone 4. Appreciate cardiology consultation 5. Ammonia level elevated; continue lactulose 6. Strict I's and O's 7. Hepatitis profile pending 8. Continue with daily weights 9. Transfer to SNF/rehab Discharge Plan: Home Plan to discharge in: Greater than 2 days - Advance Directives Does patient have a Living Will: No Does patient have a Durable POA for Healthcare: No - Code Status/Comfort Care Code Status Assessed: Yes Code Status: Full Code Critical Care: No Time Spent Managing PTS Care (In Minutes): 45
--- NOTE | 2022-02-06 05:32 | P.PN ---
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 Most of his family lives out of town. He came into the hospital because of scrotal edema. Patient also had diffuse anasarca. Patient had fungal lower extremity infection as well. Patient was diuresed extensively and he has had about 20 pounds taken off for him in the hospital. Continue with diuresing at this time. Arrange for senior care facility placement. From senior care facility the family plans to take him home where they live either in [place] or [place]. Review of Systems 10-point ROS is otherwise unremarkable Physical Examination - Vital Signs reviewed - Physical Exam General: Alert, In no apparent distress, Oriented x3 Respiratory: Diminished, Crackles/rales Cardiovascular: Regular rate/rhythm, Normal S1 S2, Systolic murmur Gastrointestinal: Normal bowel sounds, Soft and benign, No tenderness, Distended, Ascites Musculoskeletal: No tenderness, Swelling : Scrotal edema Integumentary: No rashes, Tenderness/swelling, Erythema, Warmth; lower extremity thickening Neurological: No focal deficits Assessment & Plan - Problems (Diagnosis) (1) Anasarca Current Visit: Yes Status: Acute (2) CHF (congestive heart failure), NYHA class II Current Visit: Yes Status: Acute (3) Lymphedema Current Visit: Yes Status: Acute (4) Scrotal edema Current Visit: Yes Status: Acute (5) Cirrhosis Current Visit: Yes Status: Acute - Plan Continue with plan of care as mentioned below: 1. Echocardiogram with an ejection fraction of 36%; abdominal ultrasound with cirrhosis; continue with diuresing 2. Continue with cardiac meds 3. Continue with Lasix and Aldactone 4. Appreciate cardiology consultation 5. Ammonia level elevated; continue lactulose 6. Strict I's and O's 7. Hepatitis profile pending 8. Continue with daily weights 9. Transfer to SNF/rehab Discharge Plan: Home Plan to discharge in: Greater than 2 days - Advance Directives Does patient have a Living Will: No Does patient have a Durable POA for Healthcare: No - Code Status/Comfort Care Code Status Assessed: Yes Code Status: Full Code Critical Care: No Time Spent Managing PTS Care (In Minutes): 45
[2022-02-06] MEDS ORDERED: FUROSEMIDE 40 MG/4 ML VIAL ONE (07:29)
[2022-02-06] MEDS ORDERED: NA CHLORIDE 0.9% 0 ML ONE (07:29)
[2022-02-06] MEDS: SPIRONOLACTONE 25 MG TABLET PO SCH ×2 (08:04→21:51)
[2022-02-06] MEDS: carvediloL 6.25 MG TAB PO SCH ×2 (08:04→21:52)
[2022-02-06] MEDS: LACTULOSE 20 GM/30 ML UCUP PO SCH ×2 (08:04→21:00)
[2022-02-06] MEDS: lisinopriL 10 MG TAB PO SCH (08:05)
[2022-02-06] MEDS: POTASSIUM 25 MEQ EFFERV TAB PO SCH ×2 (08:05→21:53)
[2022-02-06] MEDS: ENOXAPARIN 40 MG/0.4 ML SQ SCH (08:10)
--- NOTE | 2022-02-06 08:24 | P.PN ---
Subjective Date of Service: 02/06/22 Chief Complaint: Anasarca Subjective: No new changes, Improving Physical Examination - Vital Signs Temperature: 97.2 F Blood Pressure: 137/72 Pulse: 76 Respirations: 16 Pulse Ox (%): 94 - Physical Exam General: Alert, Oriented x3 HEENT: Atraumatic, Normocephalic Neck: Supple Cardiovascular: Normal pulses, Regular rate/rhythm Gastrointestinal: Soft and benign Musculoskeletal: Swelling Neurological: Normal speech Assessment And Plan - Plan Problems (Diagnosis) (1) Anasarca Current Visit: Yes Status: Acute (2) CHF (congestive heart failure), NYHA class II Current Visit: Yes Status: Acute (3) Lymphedema Current Visit: Yes Status: Acute (4) Scrotal edema Current Visit: Yes Status: Acute (5) Cirrhosis Current Visit: Yes Status: Acute - Plan Patient continues to show signs of improvement with significant urine output with albumin and Lasix doses. We will hold albumin and Lasix doses for now and continue spironolactone for protection of potassium. Will continue telemetry monitoring of vitals and labs on daily basis. half-way facility placement pending. Cardiology following.
[2022-02-06 11:56] LABS: Absolute Lymphocytes (CBC) 0.7 K/uL (0.7-4.9); Lymphocytes % 13.3 % (15.3-44.8); MPV 7.7 fL (7.6-11.3)
[2022-02-06 12:22] LABS: Potassium 4.7 mmol/L (3.5-5.1)
[2022-02-06 12:57] LABS: Anisocytosis 1+; Blood Morphology Comment NOTED (NOT SEEN); Macrocytosis 1+; Platelet Estimate ADEQ; Polychromasia 1+
[2022-02-07] MEDS: LACTULOSE 20 GM/30 ML UCUP PO SCH ×2 (09:00→20:04)
[2022-02-07 09:53] LABS: BUN Blood Urea Nitrogen 20 mg/dL (7-18); Glomerular Filtration Rate 102 ml/min (=/>90); Glucose Level 141 mg/dL (74-106); Potassium 4.6 mmol/L (3.5-5.1); Sodium Level 131 mmol/L (136-145)
[2022-02-07 09:54] LABS: Bicarbonate > 45 mmol/L (21-32)
[2022-02-07] MEDS: lisinopriL 10 MG TAB PO SCH (10:34)
[2022-02-07] MEDS: ENOXAPARIN 40 MG/0.4 ML SQ SCH (10:34)
[2022-02-07] MEDS: SPIRONOLACTONE 25 MG TABLET PO SCH ×2 (10:34→20:09)
[2022-02-07] MEDS: POTASSIUM 25 MEQ EFFERV TAB PO SCH ×2 (10:35→20:08)
[2022-02-07] MEDS: carvediloL 6.25 MG TAB PO SCH ×2 (10:35→20:09)
--- NOTE | 2022-02-07 14:24 | P.PN ---
Subjective Date of Service: 02/07/22 Chief Complaint: Anasarca Subjective: No new changes, Improving Physical Examination - Vital Signs Temperature: 97.3 F Blood Pressure: 119/65 Pulse: 75 Respirations: 24 Pulse Ox (%): 94 - Physical Exam General: Alert, Oriented x3 HEENT: Atraumatic, Normocephalic Neck: Supple Respiratory: Normal air movement Cardiovascular: Regular rate/rhythm, Normal S1 S2 Gastrointestinal: Soft and benign Musculoskeletal: Swelling, Other (chronic stasis dermatitis changes) Neurological: Normal speech Assessment And Plan - Plan Problems (Diagnosis) (1) Anasarca Current Visit: Yes Status: Acute (2) CHF (congestive heart failure), NYHA class II Current Visit: Yes Status: Acute (3) Lymphedema Current Visit: Yes Status: Acute (4) Scrotal edema Current Visit: Yes Status: Acute (5) Cirrhosis Current Visit: Yes Status: Acute - Plan Patient continues to show signs of improvement with significant urine output. We will held albumin and Lasix doses for now and continued spironolactone for protection of potassium. Has still has significant diuresis. Will start Lasix doses from a.m. at 40 mg. We will continue to monitor volume/urine output closely. We will have him on fluid restriction at 1.5 L/day Will continue telemetry monitoring of vitals and labs on daily basis. halfway facility placement pending. Cardiology following.
[2022-02-08 07:28] VITALS: BMI 32.3
[2022-02-08] MEDS: LACTULOSE 20 GM/30 ML UCUP PO SCH ×2 (08:21→20:51)
[2022-02-08] MEDS: ENOXAPARIN 40 MG/0.4 ML SQ SCH (08:21)
[2022-02-08] MEDS: carvediloL 6.25 MG TAB PO SCH ×2 (08:22→20:52)
[2022-02-08] MEDS: POTASSIUM 25 MEQ EFFERV TAB PO SCH ×2 (08:22→20:52)
[2022-02-08] MEDS: SPIRONOLACTONE 25 MG TABLET PO SCH ×2 (08:22→20:51)
[2022-02-08] MEDS: lisinopriL 10 MG TAB PO SCH (08:22)
[2022-02-08] MEDS: FUROSEMIDE 40 MG TABLET PO SCH (08:23)
--- NOTE | 2022-02-08 17:41 | P.PN ---
Subjective Date of Service: 02/08/22 Chief Complaint: Anasarca Subjective: No new changes Physical Examination - Vital Signs Temperature: 97.5 F Blood Pressure: 120/72 Pulse: 70 Respirations: 16 Pulse Ox (%): 92 - Physical Exam General: Alert, Oriented x3 HEENT: Atraumatic, Normocephalic Neck: Supple Respiratory: Normal air movement Cardiovascular: Regular rate/rhythm, Normal S1 S2 Gastrointestinal: Soft and benign Neurological: Normal speech Assessment And Plan - Plan Problems (Diagnosis) (1) Anasarca Current Visit: Yes Status: Acute (2) CHF (congestive heart failure), NYHA class II Current Visit: Yes Status: Acute (3) Lymphedema Current Visit: Yes Status: Acute (4) Scrotal edema Current Visit: Yes Status: Acute (5) Cirrhosis Current Visit: Yes Status: Acute - Plan Patient continues to show signs of improvement with significant urine output. we will continue lasix doses for diuresis. We will have him on fluid restriction at 1.5 L/day Will continue telemetry monitoring of vitals and labs on daily basis. [facility] facility placement pending. Cardiology following.
[2022-02-09 08:18] VITALS: O2SAT 92
[2022-02-09] MEDS: POTASSIUM 25 MEQ EFFERV TAB PO SCH (08:36)
[2022-02-09] MEDS: ENOXAPARIN 40 MG/0.4 ML SQ SCH (08:36)
[2022-02-09] MEDS: SPIRONOLACTONE 25 MG TABLET PO SCH (08:36)
[2022-02-09] MEDS: lisinopriL 10 MG TAB PO SCH (08:36)
[2022-02-09] MEDS: FUROSEMIDE 40 MG TABLET PO SCH (08:36)
[2022-02-09] MEDS: LACTULOSE 20 GM/30 ML UCUP PO SCH (08:37)
[2022-02-09] MEDS: carvediloL 6.25 MG TAB PO SCH (08:37)
--- NOTE | 2022-02-09 13:02 | P.DS ---
Admission Date: 01/31/22 Discharge Date: 02/09/22 Disposition: TRANSFER TO SNF - REHAB Discharge Condition: GOOD Reason for Admission: Anasarca Brief History of Present Illness: Patient is a 56-year-old gentleman who came to the hospital with anasarca. Patient had bilateral lower extremity edema. Patient also with fluid in the abdomen. Patient has scrotal edema which was the main reason he came into the hospital. However he had significant edema in the lower extremities. It appears he has developed some lymphedema. 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 Over the last few months since has been sitting at a desk he has noticed that the swelling is not improving. He decided to come to the hospital because of the scrotal edema. He has not seen a doctor in many years. He will be admitted for aggressive diuresing. Patient has a least an extra 20 to 30 pounds in his lower extremities as well as additional extra weight in his abdomen. We will try to aggressively diurese him and he will need to have outpatient follow-up. Work-up for congestive heart failure as he has some pulmonary edema on his chest x-rays. Vital Signs/Physical Exam: Temp Pulse Resp BP Pulse Ox 97.2 F 65 16 105/61 90 L 02/09/22 12:00 02/09/22 12:00 02/09/22 12:00 02/09/22 12:00 02/09/22 12:00 Laboratory Data at Discharge: WBC 5.6 K/uL (4.3-10.9) 02/06/22 11:30 Hgb 17.0 g/dL (13.6-17.9) 02/06/22 11:30 Hct 54.0 % (39.6-49.0) H 02/06/22 11:30 Plt Count 142 K/uL (152-406) L 02/06/22 11:30 PT 13.5 SECONDS (9.5-12.5) H 02/04/22 05:46 INR 1.22 02/04/22 05:46 APTT 42.4 SECONDS (24.3-36.9) H 02/04/22 05:46 Sodium Cancelled 02/09/22 Unknown Potassium Cancelled 02/09/22 Unknown BUN Cancelled 02/09/22 Unknown Creatinine Cancelled 02/09/22 Unknown Glucose Cancelled 02/09/22 Unknown Phosphorus 3.4 mg/dL (2.5-4.9) 02/03/22 05:34 Magnesium 1.9 mg/dL (1.8-2.4) 02/04/22 05:46 Total Bilirubin 1.3 mg/dL (0.2-1.0) H 02/04/22 05:46 AST 21 U/L (15-37) 02/04/22 05:46 ALT 17 U/L (12-78) 02/04/22 05:46 Alkaline Phosphatase 105 U/L (45-117) 02/04/22 05:46 Home Medications: Furosemide [Lasix*] 40 mg PO DAILY 30 Days #30 tab 02/09/22 Spironolactone [Aldactone*] 25 mg PO BID 30 Days #60 tab 02/09/22 carvediloL [Coreg*] 6.25 mg PO BID 30 Days #60 tab 02/09/22 lisinopriL [Prinivil*] 10 mg PO DAILY 30 Days #30 tab 02/09/22 New Medications: Spironolactone [Aldactone*] 25 mg PO BID 30 Days #60 tab carvediloL [Coreg*] 6.25 mg PO BID 30 Days #60 tab Furosemide [Lasix*] 40 mg PO DAILY 30 Days #30 tab lisinopriL [Prinivil*] 10 mg PO DAILY 30 Days #30 tab Followup: NONE,NONE [Primary Care Provider] -
[2022-02-09 16:55] VITALS: BP 124/68; TEMP 97.3
== END 2022-02-09 17:15 | DRG 292 ==
LOC: ER 06:36 → ERHOLD 13:21 → 4TH 16:37 → 2ND 02-01 18:09
PROVIDERS: ADMIT Hospitalist; ATTEND Hospitalist
DX: I50.21 Acute systolic (congestive) heart failure (principal); R18.8 Other ascites; I45.10 Unspecified right bundle-branch block; K74.60 Unspecified cirrhosis of liver; I87.2 Venous insufficiency (chronic) (peripheral); I89.0 Lymphedema, not elsewhere classified; Z20.822 Contact with and (suspected) exposure to COVID-19
CPT/HCPCS: 36415; 51702; 71045; 76700; 76870; 80048; 80053; 82140; 82607; 82746; 83540; 83605; 83735; 83880; 84100; 85025; 85610; 85730; 86704; 86706; 86709; 86803; 87340; 93005; 93306; 96374; 96375; 97110; 97116; 97161; 97530; 99285; J1650; J1940; J2175; J3475; P9047; U0003